=== PATIENT | female | born 1940 | race Caucasian/White ===

== ENCOUNTER → 2020-06-30 10:43 | Outpatient (BNVA) | payer OTHER, SELFPAY | PROVIDERS: PCP Internal Medicine; Visit Provider Hospitalist | DX: D3A.090 Benign carcinoid tumor of the bronchus and lung (principal); R05 Cough; J40 Bronchitis, not specified as acute or chronic; R91.8 Other nonspecific abnormal finding of lung field | CPT/HCPCS: 99212 ==

== ENCOUNTER → 2020-10-23 11:10 | Outpatient (BNVA) | payer OTHER, SELFPAY | PROVIDERS: PCP Internal Medicine; Visit Provider Hospitalist | DX: D3A.090 Benign carcinoid tumor of the bronchus and lung (principal); R91.8 Other nonspecific abnormal finding of lung field; R05 Cough; R13.10 Dysphagia, unspecified | CPT/HCPCS: 99212 ==

== ENCOUNTER → 2021-01-21 14:00 | Outpatient (BNVA) | payer OTHER, SELFPAY | PROVIDERS: PCP Internal Medicine; Visit Provider Hospitalist | DX: R91.8 Other nonspecific abnormal finding of lung field (principal); R05 Cough; D3A.090 Benign carcinoid tumor of the bronchus and lung | CPT/HCPCS: 99212 ==

== ENCOUNTER → 2021-05-20 14:09 | Outpatient (BNVA) | payer OTHER, SELFPAY | PROVIDERS: PCP Internal Medicine; Visit Provider Hospitalist | DX: R91.8 Other nonspecific abnormal finding of lung field (principal); R05.9 Cough, unspecified; D3A.090 Benign carcinoid tumor of the bronchus and lung | CPT/HCPCS: 99212 ==

== ENCOUNTER → 2021-12-28 15:18 | Outpatient (BNVA) | payer OTHER, SELFPAY | PROVIDERS: PCP Physician Assistant; Visit Provider Hospitalist | DX: R91.8 Other nonspecific abnormal finding of lung field (principal); J98.4 Other disorders of lung; R05.9 Cough, unspecified; R23.3 Spontaneous ecchymoses; D3A.090 Benign carcinoid tumor of the bronchus and lung | CPT/HCPCS: 99212 ==